=== PATIENT | female | born 1935 | race Caucasian/White ===

== ENCOUNTER 2016-04-29 14:12 | Emergency (ER) | payer OTHER ==
[~2016-04-29] VITALS: Ht 154.9 cm; Wt 105.0 kg
[~2016-04-29 14:12] MED LIST: ALBU8.5H3 INH; CEPH-443 PO; HYDR-3670 PO; LORA-186 PO
[2016-04-29 14:15] VITALS: Ht 154.9 cm; Wt 105.0 kg
[2016-04-29] MEDS ORDERED: LORAZEPAM 2 MG INJ ONE (15:35)
--- NOTE | 2016-04-29 15:47 | RADRPT ---
PROCEDURE: CT Brain without contrast. CLINICAL INDICATION: Pain, headache TECHNIQUE: Routine CT scan of the brain was performed on a high resolution multi detector scanner without intravenous contrast. One or more of the following dose reduction techniques were used: Auto mated exposure control; Adjustment of the mA and/or kV according to patient size; Use of iterative r econstruction technique. CTDI = 44 mGy. DLP = 630 mGy-cm. COMPARISON: CT brain 02/25/2016 FINDINGS: Hemorrhage: No evidence of intracranial hemorrhage. Acute ischemic changes: No evidence of acute ischemic changes. Mass effect/Midline shift: None. Parenchymal volume: Mild central parenchymal volume loss is evident. Ventricular system: Concordant with parenchymal volume. Chronic changes: There are scattered areas of low attenuation change within the supratentorial white matter most compatible with moderate chronic microvascular ischemic changes. Atherosclerotic calcifications of the cavernous portions of both internal carotid arteries are prese nt. Extracranial soft tissues: Unremarkable. Calvarium: No fractures. Paranasal sinuses: Visualized paranasal sinuses are clear. Mastoid air cells: Visualized mastoid air cells are clear. IMPRESSION: No acute intracranial abnormalities. Moderate chronic-appearing microvascular ischemic changes of the supratentorial white matter. RPTAT: AADD .Oral Hagan MD, Date Time Electronically viewed and signed by .Oral Hagan MD, on 04/29/2016 15:46 .B/
[2016-04-29] MEDS ORDERED: LORAZEPAM 2 MG INJ IV ONE (16:00)
[2016-04-29] MEDS ORDERED: LORAZEPAM 2 MG INJ IV STA (17:27)
--- NOTE | 2016-04-29 17:28 | ERD ---
ER Documentation Chief Complaint Date/Time DATE: 04/29/16 TIME: 17:24 Chief Complaint Mechanical fall right posterior head lac 1" HPI This 80-year-old female who lives in halfway facility. The patient usually stays in her wheelchair where today she stood up and try to walk and she had a witnessed fall yesterday and she fell and hit the right side of her head. There is no loss of consciousness however the patient sustained a right occipital laceration. Patient is not complaining of any specific complaints. She has a history of severe dementia and agitation. Denies any headache neck pain abdominal pain chest pain back pain or extremity pain ROS All systems reviewed and are negative except as per history of present illness. Medications Home Meds Reported Medications Hydralazine Hcl* (Hydralazine Hcl*) 10 Mg Tablet, 10 MG PO BID, #120 TAB 02/25/16 Loratadine* (Claritin*) 10 Mg Tablet, 5 MG PO DAILY, TAB 11/28/14 Albuterol Sulfate* (Proair HFA*) 8.5 Gm Hfa.aer.ad, 2 PUFF INH Q4 Y for SHORTNESS OF BREATH, INH 03/27/14 Discontinued Scripts Cephalexin* (Keflex*) 500 Mg Capsule, 500 MG PO TID for 5 Days, #15 CAP Prov:NAHOMY MARSHALL MD 02/25/16 Allergies Allergies: Coded Allergies: Penicillins (Unverified Allergy, Unknown, 02/25/16) RE-ENTERED UNCODED ALLERGY CODED Sulfa (Sulfonamide Antibiotics) (Unverified Allergy, Unknown, 02/25/16) RE-ENTERED UNCODED ALLERGY CODED Uncoded Allergies: PCN (Allergy, Unknown, unknown, 03/27/14) SULFA (Allergy, Unknown, unknown, 03/27/14) PMhx/Soc History of Surgery: No (unk) Anesthesia Reaction: No Hx Neurological Disorder: No Hx Respiratory Disorders: Yes (asthma, COPD, ) Hx Cardiac Disorders: No Hx Psychiatric Problems: Yes (dementia, ) Hx Miscellaneous Medical Probl: Yes (anxiety/depression, OA) Hx Alcohol Use: No Hx Substance Use: No Hx Tobacco Use: No Smoking Status: Never smoker FmHx Family History: No coronary disease Physical Exam Vitals Vital Signs Date Time Temp Pulse Resp B/P Pulse Ox O2 Delivery O2 Flow Rate FiO2 04/29/16 16:43 98.5 94 14 129/95 98 04/29/16 14:15 98.5 93 14 116/81 97 Physical Exam Const: Well-developed, well-nourished Head: Right occipital scalp laceration 2 cm no active bleeding no hematoma there is old bruising to the right zygomatic arch area as well as anterior to the pinna no hematoma swelling or redness, normocephalic Eyes: Normal Conjunctiva, PERRLA, EOMI, normal sclera, no nystagmus ENT: Normal External Ears, Nose and Mouth, moist mucus membranes. Neck: Full range of motion. No meningismus, no lymphadenopathy. Resp: Clear to auscultation bilaterally, no wheezing, rhonchi, rales Cardio: Regular rate and rhythm, no murmurs, S1 S2 present Abd: Soft, non tender x 4, non distended. Normal bowel sounds, no guarding or rebound, no pulsitile abdominal masses or bruits Skin: No petechiae or rashes, no ecchymosis , no maculopapular rash Back: No midline or flank tenderness Ext: No cyanosis, or edema, FROM x 4, normal inspection, neurovascularly intact x 4 Neur: Awake and alert, STR 5/5 x 4, sensation intact x 4, no focal findings, cerebellum intact Psych: Normal Mood and Affect Results 24 hrs Current Medications Medications (Trade) Dose Ordered Sig/Fabrizio Route PRN Reason Start Time Stop Time Status Last Admin Dose Admin Lorazepam (Ativan) 0.5 mg ONCE ONCE IV 04/29/16 16:00 04/29/16 16:01 DC 04/29/16 15:37 Lorazepam (Ativan) 2 mg STK-MED ONCE .ROUTE 04/29/16 15:35 04/29/16 15:36 DC Procedures/MDM PROCEDURE: CT Brain without contrast. CLINICAL INDICATION: Pain, headache TECHNIQUE: Routine CT scan of the brain was performed on a high resolution multi detector scanner without intravenous contrast. One or more of the following dose reduction techniques were used: Automated exposure control; Adjustment of the mA and/or kV according to patient size; Use of iterative reconstruction technique. CTDI = 44 mGy. DLP = 630 mGy-cm. COMPARISON: CT brain 02/25/2016 FINDINGS: Hemorrhage: No evidence of intracranial hemorrhage. Acute ischemic changes: No evidence of acute ischemic changes. Mass effect/Midline shift: None. Parenchymal volume: Mild central parenchymal volume loss is evident. Ventricular system: Concordant with parenchymal volume. Chronic changes: There are scattered areas of low attenuation change within the supratentorial white matter most compatible with moderate chronic microvascular ischemic changes. Atherosclerotic calcifications of the cavernous portions of both internal carotid arteries are present. Extracranial soft tissues: Unremarkable. Calvarium: No fractures. Paranasal sinuses: Visualized paranasal sinuses are clear. Mastoid air cells: Visualized mastoid air cells are clear. IMPRESSION: No acute intracranial abnormalities. Moderate chronic-appearing microvascular ischemic changes of the supratentorial white matter. RPTAT: AADD .Oral Hagan MD, MD Date Time Electronically viewed and signed by .Oral Hagan MD, MD on 04/29/2016 15:46 .B/ CC: CARLOS ORDOÑEZ DO Laceration Repair by me: Anesthesia: 1% lidocaine locally Location: Right scalp occipital Tendon/Joint/Nerves: No injury Foreign body: None detected after copious irrigation and exploration Technique: Priti 2 Complexity: No subcutaneous sutures/mucosal repair/ edge excision Post Closure Length: 2 cm Patient's bleeding was easily controlled in the department and there is no indication of anemia. No evidence of compartment syndrome, neurologic injury, vascular injury, open joint, tendon laceration, or foreign body. Patient is appropriate for outpatient follow up. 48 hour wound check. Scar minimization instructions given. Patient's family is here to pick her up Departure Diagnosis: Primary Impression: Fall Encounter type: initial encounter Qualified Code: W19.XXXA - Fall, initial encounter Additional Impression: Scalp laceration Encounter type: initial encounter Qualified Code: S01.01XA - Scalp laceration, initial encounter Condition: Stable Patient Instructions: Fall Prevention, Laceration, Scalp, Suture Or Staple ( Child) CARLOS ORDOÑEZ DO Apr 29, 2016 17:28
[2016-04-29 19:28] VITALS: BP 148/71; PULSE 110; RESP 22; TEMP 98.5
== END 2016-04-29 19:36 | disposition home or self-care (01) ==
LOC: E/R 14:12
DX: S01.01XA Laceration without foreign body of scalp, initial encounter (principal); R40.2242 Coma scale, best verbal response, confused conversation, at arrival to emergency department; J45.909 Unspecified asthma, uncomplicated; J44.9 Chronic obstructive pulmonary disease, unspecified; R40.2362 Coma scale, best motor response, obeys commands, at arrival to emergency department; R40.2142 Coma scale, eyes open, spontaneous, at arrival to emergency department; W18.09XA Striking against other object with subsequent fall, initial encounter; Y92.9 Unspecified place or not applicable
CPT/HCPCS: 12001; 70450; 96374; 96375; 99285; J2060

== ENCOUNTER 2018-11-29 17:22 | Inpatient (IN) | payer OTHER, MEDICAID ==
[~2018-11-29] VITALS: Ht 152.4 cm; Wt 28.0 kg
[~2018-11-29 17:22] MED LIST changes: +ACET325T33 PO; -ALBU8.5H3 INH; +ALBU8.5H8 INH; +ASCO500C7 PO; +BENZ0.5T41 PO; +BISA-57 PO; -CEPH-443 PO; +DIVA-73 PO; +FAMO20TA18 PO; +GABA100C14 PO; +HAL2 PO; +MAGN400O19 PO; +MINE133E23 RC; +MULT-843 PO; +SENN-120 PO
[2018-11-29] MEDS ORDERED: ALBUTEROL 0.083% (NEB) 2.5 MG/3 ML AMP INH STA (17:27)
[2018-11-29] MEDS ORDERED: IPRATROPIUM (NEB) 0.5 MG/2.5 ML AMP INH STA (17:27)
[2018-11-29] MEDS ORDERED: CEFEPIME 2GM/50 ML (PMX) 50 ML IVPB STA (17:31)
[2018-11-29] MEDS ORDERED: VANCOMYCIN 1 GM (PMX) 250 ML IVPB STA (17:31)
[2018-11-29 17:36] VITALS: Ht 152.4 cm; Wt 28.0 kg
[2018-11-29] MEDS ORDERED: SODIUM CHLORIDE 0.9% 1L BAG IV* STA (17:54)
[2018-11-29] MEDS ORDERED: ONDANSETRON 4 MG INJ IV PRN (20:00)
[2018-11-29] MEDS ORDERED: ACETAMINOPHEN 325 MG TAB PO PRN (20:00)
[2018-11-29 21:00] VITALS: BP 109/56; PULSE 77; RESP 24
[2018-11-29 22:50] VITALS: PULSE 76
[2018-11-30] VITALS (8 sets, daily range): BP systolic 95–113; BP diastolic 54–63; PULSE 69–96; RESP 18–19
[2018-11-30] MEDS ORDERED: ACETAMINOPHEN 650 MG SUPP PR PRN
[2018-11-30] MEDS: DEXTROSE 5%-0.45% NACL 1,000 ML IV SCH ×2 (01:47→16:55)
[2018-11-30] MEDS ORDERED: SOD CHLORIDE 0.9% 1,000 ML IV ONE (03:00)
[2018-11-30] MEDS: ENOXAPARIN 40 MG/0.4 ML SYG SC SCH (08:30)
[2018-11-30] MEDS: CEFEPIME 1GM/50 ML (PMX) 50 ML IVPB SCH (08:30)
[2018-11-30] MEDS: metroNIDAZOLE 500 MG/NS (PMX) 100 ML IVPB SCH ×3 (08:30→21:41)
[2018-11-30] MEDS: LORAZEPAM 2 MG INJ IV PRN (10:25)
[2018-11-30] MEDS ORDERED: ACETAMINOPHEN 325 MG TAB PO PRN ×2 (13:30)
[2018-11-30] MEDS ORDERED: BISACODYL (EC) 5 MG TAB PO PRN (13:30)
[2018-11-30] MEDS ORDERED: FAMOTIDINE 20 MG TAB PO PRN (13:30)
[2018-11-30] MEDS ORDERED: MAGNESIUM HYDROXIDE 30ML CUP PO PRN (13:30)
[2018-11-30] MEDS: BENZTROPINE 1 MG TAB PO SCH ×2 (13:40→21:00)
[2018-11-30] MEDS: MULTIVITAMINS/MINERALS TAB PO SCH (13:40)
[2018-11-30] MEDS: GABAPENTIN 100 MG CAP PO SCH ×2 (13:40→21:00)
[2018-11-30] MEDS: ASCORBIC ACID 500 MG TAB PO SCH (13:40)
[2018-11-30] MEDS: DIVALPROEX (ER) 250 MG TAB PO SCH ×2 (13:41→23:00)
[2018-12-01 02:30] VITALS: PULSE 73; RESP 17
[2018-12-01] MEDS: DEXTROSE 5%-0.45% NACL 1,000 ML IV SCH ×3 (02:40→16:00)
[2018-12-01] MEDS: metroNIDAZOLE 500 MG/NS (PMX) 100 ML IVPB SCH ×3 (06:05→21:35)
[2018-12-01 08:04] VITALS: BP 113/52; PULSE 70; RESP 20
[2018-12-01] MEDS: BENZTROPINE 1 MG TAB PO SCH ×3 (08:33→21:00)
[2018-12-01] MEDS: CEFEPIME 1GM/50 ML (PMX) 50 ML IVPB SCH (08:33)
[2018-12-01] MEDS: ASCORBIC ACID 500 MG TAB PO SCH (08:34)
[2018-12-01] MEDS: DIVALPROEX (ER) 250 MG TAB PO SCH ×2 (08:34→21:00)
[2018-12-01] MEDS: MULTIVITAMINS/MINERALS TAB PO SCH (08:34)
[2018-12-01] MEDS: GABAPENTIN 100 MG CAP PO SCH ×3 (08:34→21:00)
[2018-12-01] MEDS: ENOXAPARIN 40 MG/0.4 ML SYG SC SCH (08:39)
[2018-12-01] MEDS ORDERED: POTASSIUM CHLORIDE (SR) 20 MEQ TAB PO STA (11:55)
[2018-12-01] MEDS ORDERED: POTASSIUM CHLORIDE 100 ML IVPB ONE (13:00)
[2018-12-01] MEDS: LORAZEPAM 2 MG INJ IV PRN (13:05)
[2018-12-01 14:35] VITALS: BP 123/60; PULSE 85; RESP 18
[2018-12-01 20:00] VITALS: BP 103/58; PULSE 83; RESP 16
[2018-12-01 23:55] VITALS: BP 132/69; RESP 20
[2018-12-02] MEDS: DEXTROSE 5%-0.45% NACL 1,000 ML IV SCH ×2 (00:42→05:20)
[2018-12-02] MEDS: LORAZEPAM 2 MG INJ IV PRN ×3 (00:44→23:04)
[2018-12-02 02:00] VITALS: BP 100/48; PULSE 64; RESP 18
[2018-12-02] MEDS: metroNIDAZOLE 500 MG/NS (PMX) 100 ML IVPB SCH ×2 (06:06→13:15)
[2018-12-02] MEDS: DIVALPROEX (ER) 250 MG TAB PO SCH ×2 (08:36→20:23)
[2018-12-02] MEDS: CEFEPIME 1GM/50 ML (PMX) 50 ML IVPB SCH (08:36)
[2018-12-02] MEDS: MULTIVITAMINS/MINERALS TAB PO SCH (08:36)
[2018-12-02] MEDS: GABAPENTIN 100 MG CAP PO SCH ×3 (08:36→20:24)
[2018-12-02] MEDS: ASCORBIC ACID 500 MG TAB PO SCH (08:36)
[2018-12-02] MEDS: BENZTROPINE 1 MG TAB PO SCH ×3 (08:36→20:23)
[2018-12-02] MEDS: ENOXAPARIN 40 MG/0.4 ML SYG SC SCH (08:39)
[2018-12-02 09:07] VITALS: BP 115/59; PULSE 66; RESP 20
[2018-12-02] MEDS: BALSAM PERU/CASTOR OIL 60 GM TUBE TOP SCH ×2 (11:04→22:21)
[2018-12-02] MEDS: D5W-0.45 NACL + KCL 20 MEQ 1,000 ML IV SCH (13:23)
[2018-12-02 14:49] VITALS: BP 115/65; PULSE 72; RESP 16
[2018-12-02] MEDS: POTASSIUM CHLORIDE 100 ML IVPB SCH ×2 (15:34→18:02)
[2018-12-02 16:42] VITALS: BP 160/74; PULSE 82; RESP 18
[2018-12-02 21:04] VITALS: BP 146/73; PULSE 80; RESP 16
[2018-12-03 00:59] VITALS: BP 142/64; PULSE 75; RESP 17
[2018-12-03] MEDS: D5W-0.45 NACL + KCL 20 MEQ 1,000 ML IV SCH ×2 (03:37→17:15)
[2018-12-03 07:57] VITALS: BP 117/59; PULSE 62; RESP 20
[2018-12-03] MEDS: CEFEPIME 1GM/50 ML (PMX) 50 ML IVPB SCH (08:45)
[2018-12-03] MEDS: BALSAM PERU/CASTOR OIL 60 GM TUBE TOP SCH ×2 (08:46→20:34)
[2018-12-03] MEDS: ASCORBIC ACID 500 MG TAB PO SCH (08:46)
[2018-12-03] MEDS: MULTIVITAMINS/MINERALS TAB PO SCH (08:46)
[2018-12-03] MEDS: GABAPENTIN 100 MG CAP PO SCH ×3 (08:46→20:46)
[2018-12-03] MEDS: BENZTROPINE 1 MG TAB PO SCH ×3 (08:46→20:45)
[2018-12-03] MEDS: DIVALPROEX (ER) 250 MG TAB PO SCH ×2 (08:46→20:45)
[2018-12-03] MEDS: ENOXAPARIN 40 MG/0.4 ML SYG SC SCH (08:54)
[2018-12-03] MEDS ORDERED: BARIUM SULFATE 135 ML (E-Z HD) PO ONE (12:10)
[2018-12-03 14:46] VITALS: BP 128/65; PULSE 91; RESP 20
[2018-12-03] MEDS: ALBUTEROL/IPRATROPIUM (NEB) 3 ML AMP HHN SCH ×2 (15:37→22:29)
[2018-12-03 17:03] VITALS: BP 136/59; PULSE 59; RESP 20
[2018-12-03] MEDS ORDERED: BISACODYL 10 MG SUPP PR PRN (18:00)
[2018-12-03] MEDS: LORAZEPAM 2 MG INJ IV PRN (18:07)
[2018-12-03 20:00] VITALS: BP 97/54; PULSE 89; RESP 17
[2018-12-04] MEDS: ALBUTEROL/IPRATROPIUM (NEB) 3 ML AMP HHN SCH ×4 (01:03→19:26)
[2018-12-04 01:38] VITALS: BP 156/72; PULSE 105; RESP 17
[2018-12-04 01:50] VITALS: BP 119/60; PULSE 57; RESP 18
[2018-12-04 08:11] VITALS: BP 92/50; PULSE 62; RESP 17
[2018-12-04] MEDS: ENOXAPARIN 40 MG/0.4 ML SYG SC SCH (09:00)
[2018-12-04] MEDS: BENZTROPINE 1 MG TAB PO SCH ×3 (09:00→20:39)
[2018-12-04] MEDS: GABAPENTIN 100 MG CAP PO SCH ×3 (09:00→20:40)
[2018-12-04] MEDS: ASCORBIC ACID 500 MG TAB PO SCH (09:00)
[2018-12-04] MEDS: MULTIVITAMINS/MINERALS TAB PO SCH (09:00)
[2018-12-04] MEDS: DIVALPROEX (ER) 250 MG TAB PO SCH ×2 (09:00→20:40)
[2018-12-04] MEDS: BALSAM PERU/CASTOR OIL 60 GM TUBE TOP SCH ×2 (09:00→22:07)
[2018-12-04] MEDS: LORAZEPAM 2 MG INJ IV PRN ×2 (13:40→19:49)
[2018-12-04] MEDS: D5W-0.45 NACL + KCL 20 MEQ 1,000 ML IV SCH (13:41)
[2018-12-04 14:52] VITALS: BP 118/71; PULSE 100; RESP 16
[2018-12-04 20:00] VITALS: BP 117/68; PULSE 62; RESP 19
[2018-12-05 02:00] VITALS: BP 122/60; RESP 17
[2018-12-05] MEDS: ALBUTEROL/IPRATROPIUM (NEB) 3 ML AMP HHN SCH ×3 (02:06→14:00)
[2018-12-05 07:35] VITALS: BP 127/58; PULSE 72; RESP 18
[2018-12-05] MEDS: LORAZEPAM 2 MG INJ IV PRN (08:40)
[2018-12-05] MEDS: ASCORBIC ACID 500 MG TAB PO SCH (08:48)
[2018-12-05] MEDS: GABAPENTIN 100 MG CAP PO SCH ×2 (08:48→13:00)
[2018-12-05] MEDS: DIVALPROEX (ER) 250 MG TAB PO SCH (08:48)
[2018-12-05] MEDS: BENZTROPINE 1 MG TAB PO SCH ×2 (08:48→13:00)
[2018-12-05] MEDS: MULTIVITAMINS/MINERALS TAB PO SCH (08:48)
[2018-12-05] MEDS: ENOXAPARIN 40 MG/0.4 ML SYG SC SCH (08:53)
[2018-12-05] MEDS: BALSAM PERU/CASTOR OIL 60 GM TUBE TOP SCH (08:55)
[2018-12-05 14:00] VITALS: BP 101/51; PULSE 69; RESP 17
== END 2018-12-05 16:56 | disposition hospice, inpatient (51) | DRG 871 ==
LOC: E/R 17:22 → 2NE 19:32 → CANRESERV 21:30 → MS3 12-03 16:50
PROVIDERS: ADMIT Internal Medicine; ATTEND Internal Medicine
PROC: 5A09357 Assistance with Respiratory Ventilation, Less than 24 Consecutive Hours, Continuous Positive Airway Pressure (ICD-10-PCS; principal; 2018-11-29)
DX: A41.9 Sepsis, unspecified organism (principal); J69.0 Pneumonitis due to inhalation of food and vomit; G92 Toxic encephalopathy; J96.01 Acute respiratory failure with hypoxia; E46 Unspecified protein-calorie malnutrition; Z68.1 Body mass index [BMI] 19.9 or less, adult; R65.20 Severe sepsis without septic shock; E87.6 Hypokalemia; Z66 Do not resuscitate; F03.90 Unspecified dementia, unspecified severity, without behavioral disturbance, psychotic disturbance, mood disturbance, and anxiety; J44.9 Chronic obstructive pulmonary disease, unspecified; R13.10 Dysphagia, unspecified; T14.8XXA Other injury of unspecified body region, initial encounter; X58.XXXA Exposure to other specified factors, initial encounter; Z88.1 Allergy status to other antibiotic agents
CPT/HCPCS: 36415; 36600; 71045; 74230; 80048; 80053; 82803; 83605; 83880; 84145; 84484; 85025; 85610; 85730; 87081; 92526; 92610; 92611; 93005; 94640; 94660; 94664; 96374; 96375; J0692; J1650; J2060; J3370; J3480; J7030; J7042